=== PATIENT | male | born 1970 | race Caucasian/White ===

== ENCOUNTER 2019-05-14 09:15 | Emergency (ER) | payer OTHER, SELFPAY ==
--- NOTE | 2019-05-14 09:23 | ED.GENADULT ---
HPI - General Adult General Chief complaint: Upper Respiratory Infection Stated complaint: sinus Time Seen by Provider: 05/14/19 09:48 Source: patient Mode of arrival: ambulatory Limitations: no limitations History of Present Illness HPI narrative: 48-year-old male patient presents to the [facility] with complaints of cold symptoms for the past month. Patient states he has had a headache, pressure to his face, stuffy nose, runny nose, coughing specifically in the morning when he coughs up some brown thick sputum. Patient denies any chest pain or shortness of breath. Patient states he has been trying Tylenol, Zyrtec and has used his Flonase every once in a while. Patient states that he did run a low-grade fever the other day but that has since resolved. Related Data Home Medications Medication Instructions Recorded Confirmed cetirizine 10 mg PO DAILY 05/14/19 05/14/19 Allergies Allergy/AdvReac Type Severity Reaction Status Date / Time No Known Allergies Allergy Verified 05/14/19 09:55 Review of Systems Review of Systems: Narrative: CONSTITUTIONAL: Positive subjective low-grade fever, denies chills, or sweats. EYES: Denies visual changes, redness, or discharge. ENT: Positive rhinorrhea, congestion, sore throat,, denies otalgia. CARDIOVASCULAR: Denies chest pain, palpitations, or edema. RESPIRATORY: Positive productive cough, denies dyspnea. GASTROINTESTINAL: Denies abdominal pain, nausea, vomiting, or diarrhea. GENITOURINARY: Denies dysuria or hematuria. SKIN: Denies rash or itching. MUSCULOSKELETAL: Denies back pain, joint pain, or myalgia. NEUROLOGIC: Positive headache, denies numbness, or weakness. PSYCHIATRIC: Denies anxiety or depression. PMFSH Comments At the time of my signature I agree with nursing past medical history, surgical, social, and family history. There is no relevant family history pertinent to the presenting complaint. Exam Narrative: Exam Narrative: GENERAL: Well-appearing, well-nourished, and in no acute distress. HEAD: Normocephalic, atraumatic. Tenderness noted to frontal maxillary sinuses on palpation. EYES: PERRLA and EOMI. ENT: Nares with erythema and edema noted bilaterally, no active rhinorrhea or epistaxis. Mucous membranes moist. Posterior pharynx with some postnasal drip but no erythema no tonsil enlargement no exudates or lesions present. NECK: Supple. No lymphadenopathy CHEST: Clear to auscultation. No respiratory distress. Patient able talk in clear complete sentences. No tripoding noted. HEART: Regular rate and rhythm. No murmur heard. Normal peripheral pulses. ABDOMEN: Soft, nontender, nondistended, normal active bowel sounds. EXTREMITIES: Normal range of motion. No edema. SKIN: Warm, dry, no rash. NEURO: No focal deficits. Alert and oriented x3. Course Vital Signs Vital signs: Vital Signs Temperature 36.7 C 05/14/19 09:34 Pulse Rate 72 05/14/19 09:34 Respiratory Rate 16 05/14/19 09:34 Blood Pressure 148/76 H 05/14/19 09:34 Pulse Oximetry 99 05/14/19 09:34 Temperature 36.7 C 05/14/19 09:34 Pulse Rate 72 05/14/19 09:34 Respiratory Rate 16 05/14/19 09:34 Blood Pressure 148/76 H 05/14/19 09:34 Pulse Oximetry 99 05/14/19 09:34 Vital signs reviewed. The patient has been informed that they may have pre-hypertension or Hypertension based on a BP reading in the department. I recommend that the patient call the primary care provider listed on their discharge instructions or a physician of their choice this week to arrange follow up for further evaluation of possible pre-hypertension or Hypertension Medical Decision Making Differential Diagnosis Differential Diagnosis: Differential diagnosis: Allergic rhinitis, chronic sinusitis, tonsillitis, acute sinusitis, infectious mononucleosis, seasonal influenza, pertussis, diphtheria, meningococcal disease, viral syndrome, viral bronchitis, RSV. Discussed with patient that since his symptoms have been
[2019-05-14 09:34] VITALS: BP 148/76; PULSE 72; RESP 16; TEMP 36.7; O2SAT 99
== END 2019-05-14 10:00 | disposition home or self-care (01) ==
PROVIDERS: Emergency Provider Nurse Practitioner Family
DX: J01.90 Acute sinusitis, unspecified (principal)
CPT/HCPCS: 99213; G0463

== ENCOUNTER 2022-05-29 08:02 | Emergency (ER) | payer OTHER, SELFPAY ==
[2022-05-29 08:06] VITALS: BP 164/85; PULSE 78; RESP 20; TEMP 36.5; O2SAT 99
--- NOTE | 2022-05-29 08:07 | ED.URI ---
HPI - URI/Sore Throat General Chief Complaint: Upper Respiratory Infection Stated Complaint: Sore Throat Time Seen by Provider: 05/29/22 08:10 Source: patient, RN notes reviewed and old records reviewed Mode of arrival: ambulatory Limitations: no limitations History of Present Illness HPI Narrative: 51-year-old male who presents to [facility] with complaints of sore throat, sinus congestion with drainage, cough, headache,and some ear pressure for the past 5 days. Patient states he did do a home COVID test which was negative he has been taking Yue for his symptoms. 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 MD elicited complaint: sore throat Pertinent past history: sinusitis Onset (ago): day(s) Consistency: constant Severity: moderate Pain scale (0-10): 7 Description of mucous: yellow and green Able to tolerate fluids by mouth: Yes Associated symptoms: headache, rhinorrhea, nasal congestion, sore throat and cough Treatments prior to arrival: other (Yue) Related Data Home Medications Medication Instructions Recorded Confirmed fexofenadine 180 mg tablet 180 mg PO DAILY 05/29/22 05/29/22 Allergies Allergy/AdvReac Type Severity Reaction Status Date / Time No Known Allergies Allergy Verified 05/29/22 08:25 Review of Systems Review of Systems: CONSTITUTIONAL: Denies malaise, chills, sweats, or fever. EYES: Denies visual changes, redness, or discharge. ENT: Reports rhinorrhea, congestion, sinus pain, otalgia and sore throat. CARDIOVASCULAR: Denies chest pain, palpitations, or edema. RESPIRATORY: Reports cough.? Denies dyspnea. GASTROINTESTINAL: Denies abdominal pain, nausea, vomiting, diarrhea SKIN: Denies rash or itching. MUSCULOSKELETAL: Denies myalgia. NEUROLOGIC: Reports headache. All systems reviewed & are unremarkable except as noted in HPI and below PMFSH Past Medical History Medical History (Updated 05/29/22 @ 08:33 by Margarette Andrews NP) Bronchitis Pneumonia Seasonal allergies Sinusitis Surgical History Surgical History (Updated 05/29/22 @ 08:31 by Margarette Andrews NP) H/O left inguinal hernia repair Social History Social History (Updated 05/29/22 @ 08:31 by Margarette Andrews NP) Smoking status: Never smoker Alcohol intake: current Alcohol use details: social Substance use type: does not use Gender identity (if verbalized by the patient): Male Comments At time of signature, agree with nursing past medical, surgical, social and family history. There is no relevant family history pertinent to the presenting complaint Exam Narrative: GENERAL: Well-appearing, well-nourished, and in no acute distress. HEAD: Normocephalic EYES: PERRLA, conjunctivae clear ENT: Nares clear, turbinates edematous and erythematous, thick yellow green drainage. Mucous membranes moist. TM pearly olvera with dull light reflex bilaterally; no tragal tenderness. Oropharynx erythematous without lesions. Tonsils red not enlarged and without exudate,reports painful swallowing, no drooling, no hoarseness, no trismus, uvula midline. NECK: Supple. No lymphadenopathy CHEST: Clear to auscultation, breath sounds equal. No wheezing, rhonchi, rales, or stridor. No respiratory distress, speaks in full sentences. cough SO2 99% on room air HEART: Regular rate and rhythm. No murmur heard. SKIN: Warm, dry, no rash. NEURO: Alert and oriented x3. PSYCH: Normal mood and affect Course Course Emergency Course: Patient is aware of diagnosis, understands and agrees to treatment plan.? Anticipatory guidance given.? Patient agrees to follow-up as directed and is aware of reasons to seek care at the emergency department. Portions of this record may have been created with voice recognition software Level of Care: Express Care Visit Vital Signs Vital signs: Vital Signs Temperature 36.5 C 05/29/22 08:06 Pulse Rate 78 05/29/22 08:06 Resp
== END 2022-05-29 08:35 | disposition home or self-care (01) ==
PROVIDERS: Emergency Provider Registered Nurse; PCP Internal Medicine Infectious Disease
DX: J32.9 Chronic sinusitis, unspecified (principal)
CPT/HCPCS: 87081; 87880; 99213; G0463

== ENCOUNTER 2024-06-23 08:28 | Emergency (ER) | payer OTHER, SELFPAY ==
[2024-06-23 08:32] VITALS: BP 141/84; PULSE 84; RESP 20; TEMP 36.9; O2SAT 100
--- NOTE | 2024-06-23 08:42 | ED.URI ---
HPI - URI/Sore Throat General Chief Complaint: Upper Respiratory Infection Stated Complaint: Flu/strep Time Seen by Provider: 06/23/24 08:40 Source: patient, RN notes reviewed and old records reviewed Mode of arrival: ambulatory Limitations: no limitations History of Present Illness HPI Narrative: 53 year old male presents to [facility] with complaints of body aches, fever, runny nose, cough,headache, sore throat, congestion since Sunday. Patient reports 1st noted fever on Sunday and other symptoms have progressed since then. Patient states that he has been taking Benadryl and he also took Claritin. Patient has not taken any Tylenol or any Ibuprofen for his fever. MD elicited complaint: cough, rhinorrhea and nasal congestion Onset (ago): day(s) (2) Consistency: progressively worsening Pain scale (0-10): 5 Description of mucous: clear Able to tolerate fluids by mouth: Yes Treatments prior to arrival: other (Benadryl, Claritin) Related Data Allergies Allergy/AdvReac Type Severity Reaction Status Date / Time No Known Allergies Allergy Verified 06/23/24 08:42 Review of Systems Review of Systems: CONSTITUTIONAL: Reports malaise, chills, sweats, or fever. EYES: Denies visual changes, redness, or discharge. ENT: Reports rhinorrhea, congestion, sinus pain, no otalgia and positive for sore throat. CARDIOVASCULAR: Denies chest pain, palpitations, or edema. RESPIRATORY: Reports cough.? Denies dyspnea. GASTROINTESTINAL: Denies abdominal pain, nausea, vomiting, diarrhea SKIN: Denies rash or itching. MUSCULOSKELETAL: Reports myalgia. NEUROLOGIC: Reports headache. All systems reviewed & are unremarkable except as noted in HPI and below PMFSH Past Medical History Medical History Bronchitis Pneumonia Sinusitis Seasonal allergies Surgical History Surgical History H/O left inguinal hernia repair Social History Social History Smoking status: Never smoker Alcohol intake: current Alcohol use details: social Substance use type: does not use Gender identity (if verbalized by the patient): Male Comments At time of signature, agree with nursing past medical, surgical, social and family history. There is no relevant family history pertinent to the presenting complaint Exam Narrative: GENERAL:Ill-appearing, well-nourished, and in no acute distress. HEAD: Normocephalic EYES: PERRLA, conjunctivae clear ENT: Nares clear, turbinates edematous and erythematous, clear discharge. Mucous membranes moist. TM pearly olvera with dull light reflex bilaterally; no tragal tenderness. Oropharynx erythematous without lesions. Tonsils not enlarged and without exudate, no drooling, no hoarseness, no trismus, uvula midline.post nasal drainage noted NECK: Supple. No lymphadenopathy CHEST: Clear to auscultation, breath sounds equal. No wheezing, rhonchi, rales, or stridor. No respiratory distress, speaks in full sentences. occasional cough,SAO2 100% on room air HEART: Regular rate and rhythm. No murmur heard. SKIN: Warm, dry, no rash. NEURO: Alert and oriented x3. PSYCH: Normal mood and affect Course Course Emergency Course: Patient is aware of diagnosis, understands and agrees to treatment plan.? Anticipatory guidance given.? Patient agrees to follow-up as directed and is aware of reasons to seek care at the emergency department. Portions of this record may have been created with voice recognition software Level of Care: Express Care Visit Vital Signs Vital signs: Vital Signs Temperature 36.9 C 06/23/24 08:32 Pulse Rate 84 06/23/24 08:32 Respiratory Rate 20 06/23/24 08:32 Blood Pressure 141/84 H 06/23/24 08:32 Pulse Oximetry 100 06/23/24 08:32 Oxygen Delivery Room Air 06/23/24 08:32 Temperature 36.9 C 06/23/24 08:32 Pulse Rate 84 06/23/24 08:32 Respiratory Rate 20 06/23/24 08:32 Blood Pressure 141/84 H 06/23/24 08:32 Pulse Oximetry 100 06/23/24 08:32 Oxygen Delivery Room Air 06/23/24 08:32 Reviewed MDM - URI/Sore Throat MDM Narrative Medical decision making narrative: Differential diagnosis considered: Epstein virus, strep pharyngitis, allergic rhinitis, upper respiratory tract infection, sinusitis, rhinosinusitis, nasopharyngitis. viral pharyngitis, otitis media, otitis externa, pneumonia, bronchitis, viral cough syndrome, viral syndrome, and influenza.? Exam findings show no acute concerns or changes; patient is non-toxic appearing and is in no distress.? Patient is appropriate for outpatient treatment and follow-up. Differential Diagnosis Differential diagnosis: Likely upper respiratory infection, sinusitis, viral infection, influenza and other (COVID) Medical Records Attestation: I reviewed the patient's medical records. Lab Data Attestation: I reviewed the patient's lab results. Lab results narrative: Influenza a positive, influenza B negative COVID antigen negative Labs: Lab Results 06/23/24 Range/Units 08:50 POC Influenza A Ag Positive (Negative) POC Influenza B Ag Negative (Negative) POC SARS CoV-2 Ag Negative (Negative) reviewed Critical Care Time Critical Care Time Critical Care Time: No Discharge Plan Discharge Clinical Impression: Influenza A Patient Disposition: Home, Self-Care Condition: Stable Instructions: Influenza (ED) Additional Instructions: Increase fluids especially juices and water [id number] cough and cold medicine of your choice for your symptoms Zyrtec, Claritin or Yue daily for sinus drainage Tylenol or Ibuprofen for any fevers or pain heat to the face 20-30 minutes 4-6 times a day for pain Salt water gargles, throat lozenges or throat sprays as desired Monitor fevers every 4 hours If your symptoms persist, change or worsen significantly before you can contact your personal physician then please, without delay, go to the emergency department for further evaluation. Follow-up with PCP in 7-10 days or sooner if needed Follow up with PCP soon in regards to your blood pressure which is elevated above threshold for referral. Blood pressure above 120/80 may indicate pre-hypertension. 141/84 Tamiflu as requested by patient You have to be fever free for 24 hours without use of Tylenol or Ibuprofen before you can return to work Patient Language: Croatian Prescriptions: New oseltamivir [Tamiflu] 75 mg capsule 75 mg PO Q12H 5 Days Qty: 10 0RF Follow-up/Referrals: Cher,Edwardo Mullen MD [Primary Care Provider] - Stand Alone Forms: Work/School Release IP Time of Disposition: 08:52 Quality Yu Coma Scale Eyes: Open Verbal: Oriented and Alert Motor: Follows Commands [place] Coma Total Score: 15
--- OUTSIDE RECORDS SUMMARY | 2024-06-23 08:52 | XMS_ITS | Clinical Summary ---
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 Active LORazepam (ATIVAN) 1 MG Tablet Take 1 Tab by mouth every 8 hours as needed for Anxiety. 30 Tab 07/07/2019 Active Social History Tobacco Use Types Packs/Day Years Used Date Smoking Tobacco: Never Alcohol Use Standard Drinks/Week Comments Never 0 (1 standard drink = 0.6 oz pur e alcohol) AUDIT-C Answer Date Recorded Q1: How often do you have a drink containing alc ohol? Never 07/07/2019 Average Number of Drinks Not on file 020 Frequency of Binge Drinking Not on file 06/15 Sex and Gender Information Value Date Recorded Sex Assigned at Not on file Legal Sex Male 9:06 PM CDT Gender Identity Not on file Sexual Orientation Not on file Last Filed Vital Signs Vital Sign Reading Time Taken Comments Blood Pressure 146/84 07/07/2019 9:15 AM CDT Pulse 74 07/07/2019 9:15 AM CDT Temperature 37.2 C (98.9 F) 07/07/2019 9:15 AM CDT Respiratory Rate 18 07/07/2019 9:15 AM CDT Oxygen Saturation 95% 07/07/2019 9:15 AM CDT Inhaled Oxygen Concentration - - Weight 97.5 kg (215 lb) 07/07/2019 6:26 AM CDT Height 185.4 cm (6' 1 ) 07/07/2019 6:26 AM CDT Body Mass Index 28.37 07/07/2019 6:26 AM CDT Plan of Treatment Health Maintenance Due Date Last Done Comments Hepatitis C Virus (HCV) Screening 1969 TdaP Immunization 1969 Hepatitis B Immunization (1 of 3 - 19+ 3-dose series) 1988 Colonoscopy 2014 Colorectal Cancer Screening 2014 Cologuard 11/19/2019 Immunochemical Fecal Occult Blood 11/19/2019 Pneumococcal Immunization (50+ years) (1 of 1 - PCV) 11/19/2019 Zoster Immunization (1 of 2) 11/19/2019 Influenza Immunization (#1) 12/16/202301/14, 01/21/2018, 02/09/2016, Additional history exists SARS-COV-2 Immunization ( season) 2023 04/02/2021, 07/03/2020, 06/12/2020 Respiratory Syncytial Virus (RSV) Immunization (Adult) (1 - 1-dose 75+ series) 2044 Meningococcal Immunization (ACWY) Aged Out No longer eligible based on patient's age to complete this topic Pneumococcal Immunization Combined Aged Out No longer eligible based on patient's age to complete this topic Rotavirus Immunization Aged Out No lo nger eligible based on patient's age to complete this topic Care Teams Electrical Transmission Engineer Relationship Specialty Start Date End Date Edwardo Kwon MD [address], [address] [place] [address] PCP - General Infectious Disease 07/07/19
--- OUTSIDE RECORDS SUMMARY | 2024-06-23 08:52 | XMS_ITS | Referral Summary ---
Author Organization [facility] Address [address] [place] [address] Care Team Providers Care Service Station Manager Name Role Phone Edwardo Kwon MD Primary Care Provider [phone] Allergies No known active allergies Medications loratadine (CLARITIN) 10 mg tablet Take 10 mg by mouth daily Active tamsulosin (FLOMAX) 0.4 mg extended release capsuleIndicati ons:Urolithiasi s Take 1 capsule (0.4 mg total) by mouth daily 14 capsule 02/23/2022 Active Active Problems Problem Noted Date Diagnosed Date Screening for colon cancer 06/30/2022 Overview (06/30/2022): Added automatically from request for surgery [id number] Other fatigue 09/14/2020 Assessment & Plan (03/31/2021 11:52 AM CURTAIN CLEANER): For the past six months, he complains of significant fatigue. I suspect it is from poor sleep. He falls asleep easily, but wakes up after 3-4 hours because of nasal congestion. Once he clears his nose out, he has trouble falling back asleep. Altogether he might get 5 or 6 hours at night, then he has to go to work. He also snores but does not have a bed partner so we do not know if he has interrupted breathing. He scores 11 on the Sutherland Sleepiness Scale. He also wants vitamin levels checked. Orders were placed to evaluate all of these things. We will also start him on some Astelin for possible allergic rhinitis, although he tested negative in Dr. Eastman's a office about a year ago. Snores 09/14/2020 Assessment & Plan (03/31/2021 12:02 PM CURTAIN CLEANER): He snores. He scores high on the Sutherland Sleepiness Scale at 11. We will order a home sleep study. Left foot pain 10/14/2018 Overview (02/10/2019): Has to get in awkward positions for his job, gets various aches and pains as a result. Current pain is plantar surface of left foot, worse with inactivity, e.g., first thing in a.m. He has been stretching which seems to make things worse. OTC NSAIDs help a little bit, but make his stomach weird (indigestion). Assessment & Plan (02/22/2019 7:18 PM CURTAIN CLEANER): He has had three months of left foot arch pain. It is worse in the morning when he first gets up, and improves with walking. Some positions that he has to adopt at work to move computer equipment around make it worse. Exam shows mild to moderate pes planus, and some tenderness of the left foot arch most suggestive of plantar fasciitis. We discussed the nature of this condition and its treatment. Recommend he start some stretching exercises at home and get a gel heel cup. He has already taken couple of weeks of usvx-mri-[id number] nonsteroidal without much benefit. If it does not resolve over time, he will call for a referral to Podiatry. Elevated blood pressure reading 08/05/2018 Assessment & Plan (03/31/2021 11:58 AM CURTAIN CLEANER): Blood pressure is borderline, but okay for now. He will continue nonpharmacologic treatment and monitoring. 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 Evaluated in office on 07/15/18. USN was normal. Improving on nonsteroidals. Assessment & Plan (08/05/2018 2:31 PM CDT): The about a month ago, he was in an awkward position at work for a fairly long period of time. This put pressure on his left testicle. After he got up he had some pain, not immediately, but it became quite tender. He came to the office on July 15 and saw the nurse practitioner. Ultrasound was obtained which showed small epididymal cysts and hydrocele as well as a varicocele. He was given nonsteroidals for one week and had marked improvement in the tenderness and swelling. Exam today is essentially normal except for mild tenderness that persist. Continue to monitor. 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 Hurts to lift it up in the air or to pull on things. Has also been doing some spring yard work. Assessment & Plan (08/05/2018 2:29 PM CDT): He has had pain in his left shoulder for the past three weeks or so. Does not recall any specific injury. He has been doing some yard work which may be a contributing factor. 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 All of these may be factors. On exam he has moderately decreased range of motion in both shoulders, in internal and external rotation, especially on the left side where there is some pain with both internal and external rotation. He can raise both arms above the head, but experiences discomfort and pain in the left shoulder when doing so. There is no joint effusion or warmth. There is some mild tenderness over the insertion of the long head of the biceps tendon. Provocative maneuvers are negative for increased pain. We discussed the options for treatment including a longer trial of nonsteroidals (he already took about seven days but stopped taking them two weeks ago), physical therapy referral, orthopedic surgery referral. For now he wants to try the nonsteroidals in some gentle stretching at home. If he is not back to his baseline, we will refer as discussed. Nodule of finger of left hand 03/15/2017 Overview (03/31/2021): Several episodes of minor trauma to left middle finger PIP joint, dorsal swelling, with persistent painful swelling. Resected synovial cyst. Assessment & Plan (02/10/2019 2:31 PM CDT): This was excised by Dr. Osborne. It was a ganglion cyst. He had a good result. Assessment & Plan (09/07/2017 2:21 PM CDT): About six months ago he had a minor injury to the left middle finger PIP joint dorsal surface. He thinks it occurred when he was working on a computer. He does not think there was any foreign body that entered or stayed in the skin. After that he has had several additional minor traumas to that area. He has developed a tender nodular subcutaneous swelling suggestive of a ganglion cyst. There is some overlying hyperemia. It is mildly to moderately tender on palpation and is suggestive of a cystic lesion. Granuloma or foreign body reaction is a consideration. There is no evidence of local infection. Range of motion in the joint is normal. We will refer to Dr. Osborne for his evaluation, probable resection of this abnormality. Mixed hyperlipidemia 02/09/2016 Assessment & Plan (03/31/2021 11:56 AM CURTAIN CLEANER): He is due for fasting labs which he will get done today. We will touch base with him about the results when available. Assessment & Plan (02/22/2019 7:20 PM CURTAIN CLEANER): We discussed his follow-up cholesterol panel which shows improvement of total and LDL cholesterol, but a decline in HDL cholesterol. He continues to work on his diet, avoiding animal fats as recommended. I also recommended increased aerobic activity to improve the HDL. Lab Results Component Value Date CHOL 189 12/20/2018 CHOL 233 (H) 02/09/2016 Lab Results Component Value Date HDL 33 (L) 12/20/2018 HDL 40 02/09/2016 Lab Results Component Value Date LDL 131 (H) 12/20/2018 LDL 140 (H) 02/09/2016 Lab Results Component Value Date TRIG 140 12/20/2018 TRIG 264 (H) 02/09/2016 Assessment & Plan (08/05/2018 2:31 PM CDT): A cholesterol profile about three years ago showed mild to moderate cholesterol abnormalities. Since then, he has lost some weight and wants to see what a follow-up lipid profile will look like. We will have that done before his next visit in about six months. Low back pain 12/16/2015 Overview (07/20/2016): Low back pain Kidney stones 10/20/2015 Overview (11/15/2016): Renal parenchymal stones noted incidentally on CT for abdominal pain. Assessment & Plan (03/10/2022 12:51 PM CURTAIN CLEANER): He has a history of kidney stones going back quite a few years. He says he has passed several over the years. He is pretty sure there is a recurrence. About three weeks ago, his urine started looking cloudy, and he developed some right costovertebral angle pain. There is no dysuria or hematuria, but there is some urinary urgency and a slight discomfort associated with the urgency. Exam does exhibit some percussion tenderness in the right CVA, absent on the left side. He also has some sciatic type symptoms but a straight leg raise test on the right side only produces some mild discomfort in the posterior thigh, nothing in the back. We will check urinalysis with microscopic and reflex culture. He wants to defer imaging for now. We discussed possible complications of kidney stone. He will stay well hydrated. We discussed dietary interventions for recurring kidney stones, although some of this will depend on the type of stone he has. We will give him a little Flomax, risks of medication discussed. He has a scheduled visit in about a month, but should call sooner than that if not getting better. Overweight 01/14/2011 Overview (07/20/2016): Overweight Assessment & Plan (02/22/2019 7:20 PM CURTAIN CLEANER): We discussed a healthy heart diet including decreased saturated fat, as well as increasing his activity level. Atopic rhinitis 01/14/2005 Overview (12/02/2016): CT on 11/22/16: 1. MINIMAL MUCOSAL THICKENING PRIMARILY ETHMOIDAL SINUSES. 2. VERY MILD NASAL SEPTAL BOWING TO THE RIGHT. Patient referred to Dr. Torres. Assessment & Plan (03/31/2021 12:00 PM CURTAIN CLEANER): He complains of chronic nasal drainage. It is a white to clear drainage. He does not really have sneezing or itchy eyes. He saw Dr. Eastman who tested him for allergies. The patient says everything was negative. Symptoms seem to bother him most in the middle of the night, and interfere with sleep. He does have some possible vasomotor symptoms such as sneezing when exposed to bright lights. However negative allergy testing does not necessarily rule out a histamine mediated problem. He takes oral antihistamines which sometimes dry him out too much. We will try a nasal antihistamine spray. Hopefully this will help his symptoms and help him sleep better at night. Assessment & Plan (02/10/2019 2:29 PM CDT): Symptoms are well controlled with Zyrtec. He is no longer using Flonase on a regular basis. Continue same. Assessment & Plan (08/05/2018 2:29 PM CDT): Symptoms are well controlled on Zyrtec. He also has used Flonase in the past with benefit and he will call if he needs a refill. Heartburn 01/14/1995 Overview (07/20/2016): Heartburn Assessment & Plan (03/31/2021 11:57 AM CURTAIN CLEANER): He is no longer taking omeprazole. He says his abdominal symptoms have essentially resolved except for chronic diarrhea which he has had for years. He takes Imodium as needed for this problem. Assessment & Plan (07/09/2019 3:36 PM CDT): He has a long history of heartburn. He also says he had u lcers many years ago and was treated with Tagamet back then. More recently, he has taken Prilosec now and then for heartburn symptoms. The heartburn has flared lately. He is constantly belching. His stomach is constantly rumbling. This all got up into his throat and was felt as a thick mucus that made it hard to breathe. He became anxious and probably hyperventilated. He says the Prilosec is helping the heartburn a lot. We will have him continue this for a couple of months. Hopefully it will decrease the sense of thick mucus in the back of his throat as well. Mood disorder 10/14/1989 Overview (07/08/2019): Primarily anxiety. Assessment & Plan (03/31/2021 11:56 AM CURTAIN CLEANER): He is not currently taking anything for his mood. He seems to be pretty well adjusted except for his sleep problems. We will continue supportive care. Assessment & Plan (07/15/2019 12:57 PM CDT): He has fairly good insight into his mood. He says he has had problems with anxiety for many years. For awhile in his 20s, he was taking BuSpar, but he said it did not help. More recently, he had what sounds like a panic attack. He went to the [facility] with probable hyperventilation. This started with some generalized anxiety about the Covid-19 epidemic, and was compounded when he developed sinus problems that have lasted the last several months. 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 A few days ago, he woke up at 1:00 a.m. in a panic because of thick mucus in the back of his throat. He felt like he could not breathe. He got dizzy and lightheaded. He had tingling in his arms. He could not figure out how to uses phone to call 911. After an hour or so, symptoms subsided and he went back to bed. However they recurred later that morning and he did finally go to the [facility] emergency room where they did a very thorough evaluation for cardiopulmonary causes of his symptoms. Nothing significant was found. He was given some Ativan and he had immediate improvement in his symptoms. He was discharged home and advised to follow-up here. Currently he continues to feel improved. He is trying to minimize the use of Ativan, taking it mostly at night to help him sleep. We discussed the treatment of anxiety disorders and panic attacks. Counseling would be recommended. In the meantime, we will get him started on Paxil, risks of medication discussed. He can continue using the Ativan as needed for now. We will see him back in 2-3 weeks to see how he is doing. Ocular migraine 12/15/1985 Overview (02/10/2019): Details lacking. Deviated nasal septum 09/14/1984 Overview (07/20/2016): Deviated nasal septum Resolved Problems Problem Noted Date Diagnosed Date Resolved Date Nausea and vomiting 05/19/2020 03/31/20 Overview (03/31/2021): See office note, KAHLIL Rm. Assessment & Plan (05/19/2020 5:28 PM CURTAIN CLEANER): Nausea, vomiting, and diarrhea started on Sunday until yesterday. He has not had any vomiting or diarrhea since yesterday or last evening. He reports that he is still nauseated. I have advised that he do a 12-24 hour bowel rest with liquids. He then can follow that with a soft bland diet if tolerated. Covid-19 test= negative Influenza test= negative Advised to stay hydrated and try what we have discussed today. Let us know if fever returns or other symptoms persist. He agrees. Fever 05/19/2020 03/31/2021 Overview (03/31/2021): Probably GI viurs, flu and Covid negative. See office note, KAHLIL Rm. Assessment & Plan (05/19/2020 5:30 PM CURTAIN CLEANER): Possibly related to a GI virus. We ruled out covid-19 and influenza today. Pt has been afebrile since sunday. Advised to take tylenol if fever returns and call our office for a f/u appt and more testing. He agrees. Acute recurrent pansinusitis 07/04/2019 03/31/2021 Overview (03/31/2021): Seen at [facility], treated with antibiotics x 2, see notes. Assessment & Plan (07/09/2019 3:34 PM CDT): He has been seen twice recently for sinus symptoms, first in April at [facility] in [place], when he got amoxicillin, and then more recently in our office when he was treated with a change in his allergy medications. He was also given doxycycline. However, two days ago, he woke up at 1:00 a.m. with a constellation of symptoms that made him panic, see discussion elsewhere. He went to the [facility] ER where they could not find any major problem despite a significant workup. He was given Ativan for anxiety. He is feeling improved. For possible sinus problems, we will continue the doxycycline as previously ordered and have him follow-up in 2-3 weeks. Assessment & Plan (07/04/2019 10:28 AM CDT): Patient has had ongoing sinus complaints since February of last year. He reports yearly recurrences. He was treated last month with Augmentin and did not see improvement. We will treat with doxycyline x 10 days. He was encouraged to be aggressive with OTC treatments using saline rinses twice a day, flonase daily along with Mucinex. He will be referred to ENT for further evaluation and is to call with any worsening or persistent symptoms. Cough 07/04/2019 03/31/2021 Overview (03/31/2021): See office note, likely due to a combination of factors, post-nasal drainage, acid reflux, others. Assessment & Plan (07/15/2019 12:42 PM CDT): He has very thick mucus in the back of his throat which makes it hard for him to breathe. He thinks it is coming from his sinuses, but also from acid reflux and heartburn. The other night, he woke up at 1:00 a.m. in a panic because of the thick mucus. He probably hyperventilated based on his description of dizziness, tingling in his arms and hands, and just generally feeling very anxious. See discussion elsewhere. He went to the [facility] ER where there was no evidence of pneumonia or other acute cardiopulmonary or infectious problem. He was given Ativan with rapid improvement in his symptoms. He continues on doxycycline for sinus issues from a previous office visit here. He seems to have minimal risk for Covid-19. 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 However, there is no known contact to anyone with Covid-19, or at risk for Covid-19. We will see him back in 2-3 weeks. Assessment & Plan (07/04/2019 10:40 AM CDT): Most likely secondary to sinus drainage. Given persistent nature we will do CXR to r/o any acute cardiopulmonary process. He has chest wall pain most likely exacerbated by cough. He will be sent tessalon perles to help with cough. He can also use delysm for cough. He will call with any worsening symptoms. Immunizations Immunization Administration Dates Next Due Influenza, Quadrivalent, Split, Intramuscular Influenza, Quadrivalent, Spl it, Preservative Free, Intramuscular 01/30/2019,01/21/2018 Influenza, Trivalent, IM (MDV) 01/02/2017,2013 Influenza, Trivalent, Preservative Free, Intramu scular 02/09/2015 Influenza, Unspecified 01/30/2019 Social History Tobacco Use Types Packs/Day Years Used Date Smoking Tobacco: Never Smokeless Tobacco: Never Tobacco Cessation:Counseling Given: Yes PHQ-2 Answer Date Recorded PHQ-2 Total Score (If total score is 3 or more points, staff should administer the PHQ-9) 0 03/31/2021 Personal Safety Answer Date Recorded Have you ever been in or are you currently in a harmful physical or emotional relationship or is someone making you feel afraid or unsafe? Denies 07/07/2022 Sex and Gender Information Value Date Recorded Sex Assigned at Not on file Legal Sex Male 8:03 PM CURTAIN CLEANER Gender Identity Not on file Sexual Orientation Not on file Last Filed Vital Signs Vital Sign Reading Time Taken Comments Blood Pressure 110/59 07/07/2022 12:36 PM CDT Pulse 62 07/07/2022 12:36 PM CDT Temperature 36.7 C (98 F) 07/07/2022 12:36 PM CDT Respiratory Rate 20 07/07/2022 12:36 PM CDT Oxygen Saturation 98% 07/07/2022 12:36 PM CDT Inhaled Oxygen Concentration - - Weight 97.1 kg (214 lb) 07/07/2022 10:50 AM CDT Height 191.8 cm (6' 3.51 ) 07/07/2022 10:48 AM C DT Body Mass Index 26.39 07/07/2022 10:48 AM CDT Plan of Treatment Not on file Procedures Procedure Name Priority Date/Time Associated Diagnosis Comments COLONOSCOPY 07/07/2022 10:37 AM CDT PSA SCREEN Routine 03/31/2021 12:03 PM CURTAIN CLEANER Prostate cancer screening from Last 3 Months or Most Recently Relevant to Health Maintenance Results * COLONOSCOPY (07/07/2022 10:37 AM CDT) Anatomical Region Laterality Modality Other Narrative Procedure Note Gerardo Anne MD - 07/07/2022 10:37 AM CDT [facility] Patient Name: Arnulfo Morelos Procedure Date: 07/07/2022 10:37 AM Date of : 1970 Admit Type: Outpatient Age: 51 Gender: Male Attending MD: Gerardo Anne M.D. Room: [facility] ENDOSCOPY ROOM 2 Note Status: Finalized Patient Profile: Refer to note in patient chart for documentation of history and physical. Procedure: Colonoscopy Indications: Screening for colorectal malignant neoplasm, Thisis the patient's first colonoscopy Referring MD: Edwardo Kwon M.D. Providers: Gerardo Anne M.D. Impression: - Hemorrhoids found on perianal exam. - The entire examined colon is normal. - No specimens collected. Recommendation: - Discharge patient to home. - Resume previous diet. - Continue present medications. - Repeat colonoscopy in 10 years for screening purposes. - Return to primary care physician as previously scheduled. Medicines: Propofol per Anesthesia Complications: No immediate complications. Estimated Blood Loss: Estimated blood loss: none. Procedure: Pre-Anesthesia Assessment: - This assessment was completed [Time ofAssessment] prior to the administration of sedation. The benefits, risks and alternatives of theprocedure and sedation were discussed and informed consentwas obtained. All questions were answered. Please referto the signed informed consent document in the medical record. The bowel preparation used was Miralax and bisacodyl tablets via split dose instruction. The scope was passed under direct vision. TheColonoscope [id number] was introduced through the anus and advanced to the the cecum, identified by appendiceal orifice and ileocecal valve. The colonoscopy was performed without difficulty. The patient tolerated the procedure well. The qualityof the bowel preparation was excellent. The ileocecal valve, appendiceal orifice, and rectum were photographed. Findings: Hemorrhoids were found on perianal exam. The colon (entire examined portion) appeared normal. Electronically signed by Gerardo Anne M.D. Gerardo Anne M.D. 07/07/2022 12:11:47 PM Number of Addenda: 0 Note Initiated On: 07/07/2022 10:37 AM Procedure Code(s): --- Professional --- G0121, Colorectal cancer screening; colonoscopy on individual not meeting criteria for high risk --- Technical --- G0121, Colorectal cancer screening; colonoscopy on individual not meeting criteria for high risk Diagnosis Code(s): --- Professional --- K64.9, Unspecified hemorrhoids Z12.11, Encounter for screening for malignant neoplasm of colon --- Technical --- K64.9, Unspecified hemorrhoids Z12.11, Encounter for screening for malignant neoplasm of colon CPT copyright 2020 [employer]. All rights reserved. The codes documented in this report are preliminary and upon coating and baking operator reviewmay be revised to meet current compliance requirements. Recognized by the [employer] for promoting quality in endoscopy Gerardo Anne MD ENDOSCOPY PROCEDURES Final Re sult * PSA screen (03/31/2021 12:03 PM CURTAIN CLEANER) PSA-Total 0.50 <=3.90 ng/mL RD [facility] Comment: Interpretive Data AGE SEX REFERENCE INTERVAL 0 minutes-150 years Female None 0 minutes-49 years Male None 50-59 years Male 0-3.90 60-69 years Male 0-5.40 70-79 years Male 0-6.20 80-150 years Male 0-6.20 Current interpretive data last revised 2018. Blood 03/31/2021 12:0 3 PM CURTAIN CLEANER 03/31/2021 10:29 PM CURTAIN CLEANER Edwardo Kwon MD LAB [place] [id number] [place] [address] from Last 3 Months or Most Recently Relevant to Health Maintenance Insurance [facility] Address: [place] [address] [facility] Address: [place] [address] [facility] Address: [address] [address] [place] [id number] [facility] [employer] [facility] [employer]PPO Address: [address] [address] [place] [address] Advance Directives For more information, please contact: [phone] * Full Code (Latest Code Status on File) Date Activated Date Inactivated Comments 07/07/2022 10:44 AM 07/07/2022 4:58 PM * Full Code Date Activated Date Inactivated Comments 07/07/2022 10:44 AM 07/07/2022 10:44 AM Care Teams Service Station Manager Relationship Specialty Start Date End Date Edwardo Kwon MD [address] [place] [address] PCP - General 06/23/10
--- OUTSIDE RECORDS SUMMARY | 2024-06-23 08:53 | XMS_ITS | Clinical Summary ---
Author Organization [facility] Address [address] [place] [address] Care Team Providers Care Manager Implementation Name Role Phone Edwardo Kwon MD Primary Care Provider [phone] Allergies No known active allergies Medications loratadine (CLARITIN) 10 mg tablet Take 10 mg by mouth daily Active tamsulosin (FLOMAX) 0.4 mg extended release capsuleIndicati ons:Urolithiasi s Take 1 capsule (0.4 mg total) by mouth daily 14 capsule 02/23/2022 Active Active Problems Problem Noted Date Diagnosed Date Screening for colon cancer 06/30/2022 Overview (06/30/2022): Added automatically from request for surgery [id number] Other fatigue 09/14/2020 Assessment & Plan (03/31/2021 11:52 AM SECRET CODE EXPERT): For the past six months, he complains [...] interrupted breathing. He scores 11 on the [place] Sleepiness Scale. He also wants vitamin levels checked. Orders were placed to evaluate all of these things. We will also start him on some Astelin for possible allergic rhinitis, although he tested negative in Dr. Eastman's a office about a year ago. Snores 09/14/2020 Assessment & Plan (03/31/2021 12:02 PM SECRET CODE EXPERT): He snores. He scores high on the [place] Sleepiness Scale at 11. We will order [...] (indigestion). Assessment & Plan (02/22/2019 7:18 PM SECRET CODE EXPERT): He has had three months of left [...] has already taken couple of weeks of [id number] nonsteroidal without much benefit. If it does not resolve over time, he will call for a referral to Podiatry. 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 Hurts [...] a contributing factor. 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 We will touch base with him about the results when available. Assessment & Plan (02/22/2019 7:20 PM SECRET CODE EXPERT): We discussed his follow-up cholesterol panel which [...] pain. Assessment & Plan (03/10/2022 12:51 PM SECRET CODE EXPERT): He has a history of kidney stones [...] Overweight Assessment & Plan (02/22/2019 7:20 PM SECRET CODE EXPERT): We discussed a healthy heart diet including decreased saturated fat, as well as increasing his activity level. Atopic rhinitis 01/14/2005 Overview (12/02/2016): CT on 11/22/16: 1. MINIMAL MUCOSAL THICKENING PRIMARILY ETHMOIDAL SINUSES. 2. VERY MILD NASAL SEPTAL BOWING TO THE RIGHT. Patient referred to Dr. Torres. Assessment & Plan (03/31/2021 12:00 PM SECRET CODE EXPERT): He complains of chronic nasal drainage. It [...] Heartburn Assessment & Plan (03/31/2021 11:57 AM SECRET CODE EXPERT): He is no longer taking omeprazole. He [...] anxiety. 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 Assessment & Plan (05/19/2020 5:28 PM SECRET CODE EXPERT): Nausea, vomiting, and diarrhea started on Sunday [...] Rm. Assessment & Plan (05/19/2020 5:30 PM SECRET CODE EXPERT): Possibly related to a GI virus. We ruled out covid-19 and influenza today. Pt has been afebrile since sunday. Advised to take tylenol if fever returns and call our office for a f/u appt and more testing. He agrees. Acute recurrent pansinusitis 07/04/2019 03/31/2021 Overview (03/31/2021): Seen at [facility], treated with antibiotics x 2, see notes. Assessment & Plan (07/09/2019 3:34 PM CDT): He has been seen twice recently for sinus symptoms, first in April at [facility] in [place], when he got amoxicillin, and then more [...] risk for Covid-19. 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 However, there is no known contact to [...] Free, Intramu scular 02/09/2015 Influenza, Unspecified 01/30/2019 Surgical History Surgery Date Site/Laterality Comments FINGER SURGERY 10/26/2017 Left Left middle finger PIP gangion cyst drained and injected, Dr. Osborne. SKIN SURGERY 04/16/2010 - 04/15/2011 Sebaceous cyst on sternum: In office excision and drainage. INGUINAL HERNIA REPAIR 04/16/2007 - 04/15/2008 Right RT inguinal hernia: Repaired by Dr. Ponce COLONOSCOPY 07/07/2022 Normal except hemorrhoids, Dr. Anne, [facility]. Medical History Medical History Date Comments Ganglion cyst of joint of fi nger of left hand 2018 Middle finger PIP. Sebaceous cyst 2010 Sebaceous cyst o n sternum SOB (shortness of breath) 07/07/2019 [facility] , see note in CareEverywhere. Mixed hyperlipidemia 02/09/2016 Mood disorder 10/14/1989 Primarily anxiet y. Ocular migraine 12/15/1985 Details lacking. Nausea and vomiting 05/19/2020 See office n Elana ashby, ANP. Fever 05/19/2020 Probably GI viur s, flu and Covid negative. See office note, [facility]R. Cough 07/04/2019 See office note, likely due to a combination of factors, post-nasal drainage, acid reflux, others. Acute recurrent pansinusitis 07/04/2019 See n at [facility], treated with antibiotics x 2, see notes. Chicken pox 1975 Had it twice per mom. Covid-19 11/[address] Lost smell and taste, slight fever, congestion, cough. Has recovered. Family History Medical History Relation Name Comments Diabetes Other Family history of Diabetes mellitus; Relation Name Status Comments Other Social History Tobacco Use Types Packs/Day Years [...] on file Legal Sex Male 8:03 PM SECRET CODE EXPERT Gender Identity Not on file Sexual Orientation Not on file Obstetrics History Last Filed Vital Signs Vital Sign Reading [...] 07/07/2022 10:48 AM CDT Plan of Treatment Health Maintenance Due Date Last Done Comments Hepatitis C Screening 1969 DTaP/Tdap/Td Vaccine (1 - Tdap) 1980 Hepatitis B Screening 11/19/1987 Zoster Vaccine (1 of 2) 11/19/2019 Depression Screening 03/31/2022 03/31/2021 Regular Well Visit/Exam 18-64 03/31/2022 03/31/2021, 08/05/2018 Prostate Cancer Screening-PSA 03/31/2023 03/31/2021 Influenza Vaccine (#1) 2023 9, 01/30/2019, 01/21/2018, Additional history exists Colon Cancer Screening-Colonoscopy 07/07/2032 07/07/2022 Colon Cancer Screening-CT Colonography Discontinued 07/07/2022 Colon Cancer Screening-DNA Stool Discontinued 07/07/2022 Colon Cancer Screening-FIT Discontinued 07/07/2022 Colon Cancer Screening-Sigmoidoscopy Discontinued 07/07/2022 Pneumococcal vaccine <65 Aged Out No longer eligible based on patient's age to complete this topic Procedures Procedure Name Priority Date/Time Associated Diagnosis Comments COLONOSCOPY 07/07/2022 10:37 AM CDT PSA SCREEN Routine 03/31/2021 12:03 PM SECRET CODE EXPERT Prostate cancer screening from Last 3 Months [...] Male Attending MD: Gerardo Anne M.D. Room: [facility]OM 2 Note Status: Finalized Patient [...] scope was passed under direct vision. TheColonoscope [id number] was introduced through the anus and advanced [...] malignant neoplasm of colon CPT copyright 2020 [employer]. All rights reserved. The codes documented in this report are preliminary and upon welt rander reviewmay be revised to meet current compliance requirements. Recognized by the [employer] for promoting quality in endoscopy us Gerardo Anne MD ENDOSCOPY PROCEDURES Final Re sult * PSA screen (03/31/2021 12:03 PM SECRET CODE EXPERT) PSA-Total 0.50 <=3.90 ng/mL RD [facility]ENT[facility] Comment: Interpretive Data AGE SEX REFERENCE INTERVAL 0 minutes-150 years Female None 0 minutes-49 years Male None 50-59 years Male 0-3.90 60-69 years Male 0-5.40 70-79 years Male 0-6.20 80-150 years Male 0-6.20 Current interpretive data last revised 2018. Blood 03/31/2021 12:0 3 PM SECRET CODE EXPERT 03/31/2021 10:29 PM SECRET CODE EXPERT Edwardo Kwon MD LAB BLOOD ORDERAB[place] [id number] [facility] [place] [address] from Last 3 Months or Most Recently Relevant to Health Maintenance Insurance [employer] [facility] Address: [address] [place] [address] [facility] Address: [address] [address] [place] [address] [facility] Address: [address] [place] [address] [facility] [employer]/PPO Address: [place] [address] Advance Directives For more information, please contact: [phone] * Full Code (Latest Code Status on File) Date Activated Date Inactivated Comments 07/07/2022 10:44 AM 07/07/2022 4:58 PM * Full Code Date Activated Date Inactivated Comments 07/07/2022 10:44 AM 07/07/2022 10:44 AM Care Teams Manager Implementation Relationship Specialty Start Date End Date Edwardo Kwon MD [address] [place] [address] PCP - General 06/23/10
[2024-06-23 08:54] LABS: EDCOVIDSCREEN Negative (Negative); EDINFLUASCREEN Positive (Negative); EDINFLUBSCREEN Negative (Negative)
== END 2024-06-23 09:02 | disposition home or self-care (01) ==
PROVIDERS: Emergency Provider Registered Nurse; PCP Internal Medicine Infectious Disease
DX: J10.1 Influenza due to other identified influenza virus with other respiratory manifestations (principal); Z20.822 Contact with and (suspected) exposure to COVID-19
CPT/HCPCS: 87426; 87804; 99213; G0463